=== PATIENT | female | born 1990 | race Caucasian/White ===

== ENCOUNTER → 2018-06-08 08:34 | Outpatient (CLI) | payer OTHER, SELFPAY ==
[2018-06-02 09:56] VITALS: BMI 20.7
--- NOTE | 2018-06-08 08:36 | US_ITS ---
STUDY: ULTRASOUND OF THE FEMALE PELVIS - COMPLETE REASON FOR EXAM: Female, 28 years old. Menorrhagia. LMP: May 26, 2018. TECHNIQUE: Transabdominal and Transvaginal TECHNICAL QUALITY: Adequate. COMPARISON: None. FINDINGS: The uterus is anteverted and is in a midline position. The uterus measures 10.0 cm x 5.4 cm x 4.2 cm. Small amount of fluid is seen within the endocervical canal. The endometrium measures 13 mm in thickness, and is heterogeneous (striated). There is no demonstrated endometrial mass. There is no demonstrated myometrial mass. I.U.D. - The patient does not have an I.U.D. The right ovary is visualized. The right ovary measures 3.5 cm x 3.6 cm x 2.8 cm. There is a 2.4 cm x 2.1 cm x 1.8 cm right ovarian cyst. There is no visualized right adnexal mass or complex lesion. There is normal arterial and normal venous vascularity. The left ovary is visualized. The left ovary measures 3.2 cm x 2.3 cm x 3.5 cm. There is no left ovarian cyst or ovarian mass. There is no visualized left adnexal mass or complex lesion. There is normal arterial and normal venous vascularity. There is no fluid in the cul-de-sac. The pre void volume of the bladder was 74 ml. Polycystic ovary disease: No. US/Pelvic (Non ) IMPRESSION: Thickened endometrium. Small amount of free fluid in the cervix. Right ovarian cyst. Electronically Signed: Rene Mcarthur, at 9:19 EDT , Service support ,
--- NOTE | 2018-06-08 08:36 | US_ITS ---
STUDY: ULTRASOUND OF THE FEMALE PELVIS - COMPLETE REASON FOR EXAM: Female, 28 years old. Menorrhagia. LMP: May 26, 2018. TECHNIQUE: Transabdominal and Transvaginal TECHNICAL QUALITY: Adequate. COMPARISON: None. FINDINGS: The uterus is anteverted and is in a midline position. The uterus measures 10.0 cm x 5.4 cm x 4.2 cm. Small amount of fluid is seen within the endocervical canal. The endometrium measures 13 mm in thickness, and is heterogeneous (striated). There is no demonstrated endometrial mass. There is no demonstrated myometrial mass. I.U.D. - The patient does not have an I.U.D. The right ovary is visualized. The right ovary measures 3.5 cm x 3.6 cm x 2.8 cm. There is a 2.4 cm x 2.1 cm x 1.8 cm right ovarian cyst. There is no visualized right adnexal mass or complex lesion. There is normal arterial and normal venous vascularity. The left ovary is visualized. The left ovary measures 3.2 cm x 2.3 cm x 3.5 cm. There is no left ovarian cyst or ovarian mass. There is no visualized left adnexal mass or complex lesion. There is normal arterial and normal venous vascularity. There is no fluid in the cul-de-sac. The pre void volume of the bladder was 74 ml. Polycystic ovary disease: No. US/Transvaginal Non- IMPRESSION: Thickened endometrium. Small amount of free fluid in the cervix. Right ovarian cyst. Electronically Signed: Rene Mcarthur, at 9:19 EDT , Service support ,
== END ==
PROVIDERS: Family Provider Family Medicine; PCP Family Medicine; Referring Provider Nurse Practitioner Women's Health; Visit Provider Nurse Practitioner Women's Health
DX: N92.0 Excessive and frequent menstruation with regular cycle (principal); N94.6 Dysmenorrhea, unspecified
CPT/HCPCS: 76830; 76856; 93976

== ENCOUNTER → 2019-10-26 16:29 | Outpatient (CLI) | payer OTHER, SELFPAY ==
[2019-10-26 15:00] VITALS: BMI 20.7
[2019-10-26 21:26] LABS: Chlamydia Trachomatis by PCR Negative (Negative); Neisserai gonorrhoeae by PCR Negative (Negative); Probe Check PASS; Sample Adequacy Control PASS; Specimen Processing Control PASS
[2019-11-01 17:34] LABS: HPV Reflexed? NOT INDICATED
== END ==
PROVIDERS: PCP Family Medicine; Referring Provider Nurse Practitioner Women's Health; Visit Provider Nurse Practitioner Women's Health
DX: Z11.3 Encounter for screening for infections with a predominantly sexual mode of transmission (principal); Z12.4 Encounter for screening for malignant neoplasm of cervix
CPT/HCPCS: 87491; 87591; 88175; G0145